=== PATIENT | female | born 1980 | race Caucasian/White ===

== ENCOUNTER 2016-11-27 07:38 | Emergency (ER) | payer BC ==
--- NOTE | 2016-11-27 09:15 | UC ---
Yuan Bertrand Angela, scribed for Tania Vargas MD on 11/27/16 at 0901 . General HPI - HPI Summary HPI Summary: This pt is a 36 y/o female presenting to [facility] c/o sinus pain and face congestion. Pt additionally c/o frontal headache. She reports she had a tooth extraction on 11/03/16. Pt was told by her dentist that she she should stop swishing fluids and blowing her nose, but pt is unsure until when she should do this. She states that she stopped using her inhaler since 11/03/16 because usually after using her inhaler she swishes with mouth wash to avoid infection. Pt also stopped taking her Flonase since 11/03/16. She denies fever, chills, body ache, sore throat, ear pain, SOB, nausea, vomiting, diarrhea. She has an upcoming appointment with her dentist on Dec.01. Pt uses prescribed ibuprofen 3 times a day for neck pain, last dose was 2 days ago. Usually for headaches pt uses 800 mg of ibuprofen. Pt takes Singulair but does not take any anti- histamines. PMHx: asthma, allergies. - History of Current Complaint Chief Complaint: UCGeneralIllness Stated Complaint: SINUS ISSUE Hx Obtained From: Patient Hx Last Menstrual Period: unknown Onset/Duration: Lasting Days Timing: Constant Associated Signs & Symptoms: Positive: Headache, Other - sinus pain and sinus congestion. Negative: Diarrhea, Fever, Nausea, SOB, Vomiting - Allergy/Home Medications Allergies/Adverse Reactions: Allergies Allergy/AdvReac Type Severity Reaction Status Date / Time Penicillins Allergy Intermediate Rash Verified 11/27/16 08:04 Home Medications: Home Medications Fluticasone NASAL * [Flonase *] 1 spray NASAL DAILY 11/27/16 [History Confirmed 11/27/16] Fluticasone/Vilanterol MDI(NF) [Breo Ellipta MDI (NF)] 1 puff INH DAILY [History Confirmed 11/27/16] PMH/Surg Hx/FS Hx/Imm Hx - Additional Past Medical History Additional PMH: PMHx: allergies Other Endocrine History: DENIES: diabetes Other Cardiovascular History: DENIES: HTN Respiratory History: Asthma - Surgical History Surgical History: None - Family History Known Family History: Positive: Hypertension, Diabetes, Other - Negative asthma - Social History 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 Alcohol Use: Rare Substance Use Type: None Smoking Status (MU): Never Smoked Tobacco Review of Systems Constitutional: Negative Skin: Negative Eyes: Blurred Vision ENT: Sinus Congestion, Sinus Pain/Tenderness, Other - NEG: sore throat, ear pain Respiratory: Negative Cardiovascular: Negative Gastrointestinal: Negative Genitourinary: Negative Motor: Negative Neurovascular: Negative Musculoskeletal: Negative Neurological: Headache Is Patient Immunocompromised?: No All Other Systems Reviewed And Are Negative: Yes Physical Exam Triage Information Reviewed: Yes Appearance: Well-Appearing, Pain Distress - mild Vital Signs: Initial Vital Signs Temp 98.3 F 11/27/16 08:13 Pulse 77 11/27/16 08:13 Resp 16 11/27/16 08:13 BP 137/97 11/27/16 08:13 Pulse Ox 97 11/27/16 08:13 Vital Signs Reviewed: Yes Eyes: Positive: Conjunctiva Clear ENT: Positive: Pharynx normal, Nasal drainage Dental: Positive: Other: - well healed socket upper left gum line. No adenopathy Neck: Positive: Supple, Nontender, No Lymphadenopathy Respiratory: Positive: Lungs clear, Normal breath sounds Cardiovascular: Positive: RRR, No Murmur Neurological Exam: Normal Neurological: Positive: Alert, Muscle Tone Normal Psychological Exam: Normal Skin Exam: Normal Course/Dx - Course Course Of Treatment: Pt is a 36 y/o female c/o sinus pain, sinus congestion, and headache s/p stopping her medications (inhaler and flonase) on 11/03/16 after her tooth extraction. Pt medications reviewed this visit. Symptoms most consistent with undertreated allergies. No fever or purulent discharge suggestive of acute bacterial sinusitis. - Differential Dx - Multi-Symptom Provider Diagnoses: environmental allergies, sinus headache. Discharge - Discharge Plan Condition: Stable Disposition: HOME Patient Education Materials: Allergies (ED) Forms: *Work Release Referrals: Arnold Agudelo PA [Primary Care Provider] - Additional Instructions: I think that your symptoms are primarily due to undertreated allergies. I suggest using ibuprofen 800mg for headache. Use a nasal saline rinse and gently blow discharge. Following that, use flonase spray this morning, and repeat the dose this evening. Take an antihistamine such as zyrtec 10 mg or Bettie 180mg today and once daily for at least 5 days to decrease histamine. You can swish and spit after steroid inhaler use. Ensure that you have a follow up blood pressure reading within a week or 2. The documentation as recorded by the Yuan fitzpatrick Angela accurately reflects the service I personally performed and the decisions made by me, Tania Vargas MD.
[2016-11-27 09:24] VITALS: BP 138/93
== END 2016-11-27 09:21 | disposition home or self-care (01) ==
LOC: UCEAST 07:38
DX: J45.909 Unspecified asthma, uncomplicated (principal); G44.89 Other headache syndrome; Z88.0 Allergy status to penicillin
CPT/HCPCS: 99212; G0463

== ENCOUNTER 2016-12-11 08:07 | Emergency (ER) | payer BC ==
[2016-12-11 08:20] VITALS: BP 128/81
--- NOTE | 2016-12-11 09:05 | UC ---
Alicia Bertrand Rebecca, scribed for Tania Vargas MD on 12/11/16 at 0856 . Respiratory Complaint HPI - HPI Summary HPI Summary: Pt is a 36 y/o F who presents to ED c/o worsening nasal congestion and drainage. Pt was seen 2 weeks ago for similar sx which have been constant and worsening since onset. On triage, pain was noted to be 0/10. Sx aggravated by nothing, alleviated by Neti Pot. Additionally c/o sore throat, slight nonproductive cough and ear pain with swallowing. Denies SOB, N/V, fever, sinus tenderness, eye pain and ISIDRO. Pt was seen on 11/27 for similar sx and was treated for allergies. PMHx sinus infections with similar sx. States that her daughter has bronchitis. PMHx asthma - uses Brio every day. - History of Current Complaint Chief Complaint: UCRespiratory Stated Complaint: SORE THROAT Time Seen by Provider: 12/11/16 08:50 Hx Obtained From: Patient Hx Last Menstrual Period: nuva ring Onset/Duration: Lasting Weeks - 2 weeks, Still Present Severity Currently: None Pain Intensity: 0 Pain Scale Used: 0-10 Numeric Character: Cough: Nonproductive Aggravating Factors: Nothing Alleviating Factors: Other - Neti Pot Associated Signs And Symptoms: Positive: Nasal Congestion. Negative: Fever - Allergies/Home Medications Allergies/Adverse Reactions: Allergies Allergy/AdvReac Type Severity Reaction Status Date / Time Penicillins Allergy Intermediate Rash Verified 11/27/16 08:04 PMH/Surg Hx/FS Hx/Imm Hx - Additional Past Medical History Additional PMH: NEGATIVE PMHx: COPD, DM Endocrine History: Hypothyroidism Respiratory History: Asthma - Surgical History Surgical History: None - Family History Known Family History: Positive: Hypertension, Diabetes, Other - Negative asthma - Social History Lives: With Family Alcohol Use: Rare Substance Use Type: None Smoking Status (MU): Never Smoked Tobacco Review of Systems Constitutional: Negative Skin: Negative Eyes: Negative ENT: Sore Throat, Ear Ache - with swallowing, Nasal Discharge, Sinus Congestion Respiratory: Cough - nonproductive Cardiovascular: Negative Gastrointestinal: Negative Genitourinary: Negative Motor: Negative Neurovascular: Negative Musculoskeletal: Negative Neurological: Negative Psychological: Negative All Other Systems Reviewed And Are Negative: Yes - Comments Additional Review of Systems Comments: NEGATIVE: SOB, N/V, fever, sinus tenderness, eye pain and ISIDRO. Physical Exam Triage Information Reviewed: Yes Appearance: Ill-Appearing - looks fatigued and mildly unwell. Vital Signs: Initial Vital Signs Temp 97.9 F 12/11/16 08:16 Pulse 87 12/11/16 08:16 Resp 18 12/11/16 08:16 BP 128/81 12/11/16 08:16 Pulse Ox 99 12/11/16 08:16 Eye Exam: Normal Eyes: Positive: Conjunctiva Clear ENT: Positive: Pharyngeal erythema, TMs normal Neck: Positive: Supple, Nontender, No Lymphadenopathy Respiratory: Positive: Lungs clear, Normal breath sounds Neurological Exam: Normal Psychological Exam: Normal Skin Exam: Normal UC Diagnostic Evaluation - Laboratory O2 Sat by Pulse Oximetry: 99 Respiratory Course/Dx - Course Course Of Treatment: Pt medications reviewed this visit. - Differential Dx/Diagnosis Differential Diagnosis/HQI/PQRI: Bronchitis, Laryngitis, Sinusitis Provider Diagnoses: sinusitis, URI Discharge - Discharge Plan Condition: Stable Disposition: HOME Prescriptions: Azithromyxin ILIA (NF) [Z-Ilia (Zithromax) 250 mg tabs #6] 2 tab PO .TODAY, THEN 1 DAILY #6 tab Patient Education Materials: Sinusitis (ED) Forms: *Work Release Referrals: Arnold Agudelo PA [Primary Care Provider] - Additional Instructions: Continue use of present medication, and add zithromax for treatment of sinusitis. Continue use of flonase for drainage. The documentation as recorded by the Alicia fitzpatrick Rebecca accurately reflects the service I personally performed and the decisions made by me, Tania Vargas MD.
== END 2016-12-11 09:15 | disposition home or self-care (01) ==
LOC: UCEAST 08:07
DX: J32.9 Chronic sinusitis, unspecified (principal); J06.9 Acute upper respiratory infection, unspecified; Z88.0 Allergy status to penicillin; J45.909 Unspecified asthma, uncomplicated; E03.9 Hypothyroidism, unspecified
CPT/HCPCS: 99212; G0463

== ENCOUNTER 2017-01-05 12:14 | Emergency (ER) | payer BC ==
[2017-01-05 13:44] VITALS: BP 153/97
--- NOTE | 2017-01-05 13:56 | UC ---
Throat Pain/Nasal Shiraz HPI - HPI Summary HPI Summary: Pt presents with sinus pain/pressure/congestion, a mild ST, and non-productive cough for the past 6 days. She was seen about a month ago and rx'd z-russ for similar symptoms. After completing that course of anbx, she felt better for a few days. Has been taking OTC "cold and flu" medication with minimal relief. Denies fever, chills, N/V/d/C, or pain. - History of Current Complaint Chief Complaint: UCGeneralIllness Stated Complaint: SORE THROAT, COUGH, AND STUFFY Time Seen by Provider: 01/05/17 13:53 Hx Obtained From: Patient Hx Last Menstrual Period: Nuvaring, 12/15/16 Onset/Duration: Gradual Onset Severity: Moderate Pain Intensity: 8 Pain Scale Used: 0-10 Numeric Cough: Nonproductive - Allergies/Home Medications Allergies/Adverse Reactions: Allergies Allergy/AdvReac Type Severity Reaction Status Date / Time Penicillins Allergy Intermediate Rash Verified 11/27/16 08:04 PMH/Surg Hx/FS Hx/Imm Hx Previously Healthy: Yes - Surgical History Surgical History: None - Family History Known Family History: Positive: Hypertension, Diabetes, Other - Negative asthma - Social History Occupation: Employed Full-time Lives: With Family Alcohol Use: Rare Substance Use Type: None Smoking Status (MU): Never Smoked Tobacco Review of Systems Constitutional: Negative Skin: Negative ENT: Sore Throat, Sinus Congestion, Sinus Pain/Tenderness Respiratory: Cough Cardiovascular: Negative Gastrointestinal: Negative Genitourinary: Negative Neurological: Negative Psychological: Negative All Other Systems Reviewed And Are Negative: Yes Physical Exam Triage Information Reviewed: Yes Appearance: Well-Appearing, Well-Nourished Vital Signs: Initial Vital Signs Temp 98.7 F 01/05/17 13:38 Pulse 102 01/05/17 13:38 Resp 18 01/05/17 13:38 BP 153/97 01/05/17 13:38 Pulse Ox 100 01/05/17 13:38 Eyes: Positive: Conjunctiva Clear ENT: Positive: Hearing grossly normal, Pharynx normal, Nasal congestion, Nasal drainage, TMs normal, Sinus tenderness, Uvula midline. Negative: Pharyngeal erythema, TM bulging, TM dull, TM red, Tonsillar swelling, Tonsillar exudate Neck: Positive: Supple, Nontender, No Lymphadenopathy Respiratory: Positive: Chest non-tender, Lungs clear, Normal breath sounds, No respiratory distress, No accessory muscle use Cardiovascular: Positive: RRR, No Murmur, Pulses Normal Neurological: Positive: Alert Psychological: Positive: Age Appropriate Behavior Skin: Negative: rashes Throat Pain/Nasal Course/Dx - Course Course Of Treatment: Sinusitis - recently on z-russ and allergy to penicillin. Will try Doxycycline Assessment/Plan: Sinusitis - recently on z-russ and allergy to penicillin. Will try Doxycycline - Differential Dx/Diagnosis Differential Diagnosis/HQI/PQRI: Influenza, Pharyngitis, Tonsillitis, URI Provider Diagnoses: Sinusitis Discharge - Discharge Plan Condition: Stable Disposition: HOME Prescriptions: DOXYcycline CAP(*) [DOXYcycline 100MG CAP(*)] 100 mg PO BID #20 cap Patient Education Materials: Acute Bronchitis (ED) Referrals: Arnold Agudelo PA [Primary Care Provider] - Additional Instructions: 1) Doxycycline 100mg twice a day for 10 days 2) Plain mucinex over the counter twice a day 3) Rest and drink plenty of fluids! If you develop fever, SOB, chest pain, new or worsening symptoms - please call our office or go to ED. Your blood pressure was high at today's visit - please see your PCP within 4 weeks for recheck and re-evaluation.
== END 2017-01-05 14:44 | disposition home or self-care (01) ==
LOC: UCEAST 12:14
DX: J32.9 Chronic sinusitis, unspecified (principal); Z88.0 Allergy status to penicillin
CPT/HCPCS: 87651; 99211; G0463

== ENCOUNTER 2017-05-14 20:15 | Emergency (ER) | payer BC ==
[2017-05-14 20:24] VITALS: BP 139/89
[2017-05-14] MEDS ORDERED: Fluorescein Sod TOPICAL 0.6* 0.6 MG TEST OPHTHALMIC ONE (20:46)
[2017-05-14] MEDS ORDERED: Polymyx/Trimethoprim OPTH* 10 ML BTL LEFT EYE ONE (21:05)
--- NOTE | 2017-05-14 21:05 | UC ---
Eye Complaint HPI - HPI Summary HPI Summary: Patient presents to the with chief complaint of left eye irritation since last evening. She denies any known foreign body or trauma. Does not feel there is something in the eye, but states she feels that something is irritating it. She continues to place drops in the eye throughout the day with relief of symptoms temporarily. Does not endorse pain. Slight blurry vision to the left eye which is intermittent. Denies contact use. Denies any drainage from the eye or injection. - History of Current Complaint Chief Complaint: UCEye Stated Complaint: EYE COMPLAINT Time Seen by Provider: 05/14/17 20:31 Hx Obtained From: Patient Hx Last Menstrual Period: Nuvaring, 12/15/16 ?: No Onset/Duration: Sudden Onset Timing: Constant Severity Initially: Moderate Severity Currently: Moderate Pain Intensity: 0 Pain Scale Used: 0-10 Numeric Location of Injury: Conjunctiva Character: Dull Aggravating Factor(s): Eye Drops Alleviating Factor(s): Nothing Associated Signs And Symptoms: Positive: Vision Impairment Left. Negative: Photophobia, Drainage (Clear), Drainage (Purulent), Vision Impairment Bilateral , Vision Impairment Right, Fever, Swelling - Risk Factors Penetrating Injury Risk Factor: Negative Globe Rupture Risk Factors: Negative Acute Glaucoma Risk Factors: Eye Inflammation Optic Artery Occlusion Risk Factors: Negative - Allergies/Home Medications Allergies/Adverse Reactions: Allergies Allergy/AdvReac Type Severity Reaction Status Date / Time Penicillins Allergy Rash Verified 05/14/17 20:24 PMH/Surg Hx/FS Hx/Imm Hx Previously Healthy: Yes - Surgical History Surgical History: None - Family History Known Family History: Positive: Hypertension, Diabetes, Other - Negative asthma - Social History Occupation: Employed Full-time Lives: With Family Alcohol Use: Occasionally Substance Use Type: None Smoking Status (MU): Never Smoked Tobacco Review of Systems Constitutional: Negative Skin: Negative Eyes: Blurred Vision, Eye Redness Respiratory: Negative Cardiovascular: Negative Motor: Negative Neurovascular: Negative Musculoskeletal: Negative Neurological: Negative Is Patient Immunocompromised?: No All Other Systems Reviewed And Are Negative: Yes Physical Exam Triage Information Reviewed: Yes Appearance: Well-Appearing, Well-Nourished Vital Signs: Initial Vital Signs Temp 97.4 F 05/14/17 20:19 Pulse 98 05/14/17 20:19 Resp 16 05/14/17 20:19 BP 139/89 05/14/17 20:19 Pulse Ox 98 05/14/17 20:19 Vital Signs Reviewed: Yes Eyes: Positive: Conjunctiva Inflamed Neck exam: Normal Neck: Positive: Supple, No Lymphadenopathy Respiratory Exam: Normal Respiratory: Positive: Chest non-tender, Lungs clear Cardiovascular Exam: Normal Cardiovascular: Positive: RRR Musculoskeletal Exam: Normal Musculoskeletal: Positive: Strength Intact Neurological Exam: Normal Neurological: Positive: Alert Psychological: Positive: Normal Response To Family Skin Exam: Normal Eye Complaint Course/Dx - Course Course Of Treatment: Visual acuity test performed. Right eye shows 20/20 and left eye shows 20/15. She has not seen an eye doctor in 2 years and does not wear contacts. She is unsure if she obtain something in the eye or the eyes just irritated. She feels as though the eye is irritated, but denies any pain. Slight intermittent blurry vision to the left eye. Denies any headaches or dizziness. Fluoroscein uptake does not show evidence of foreign body or corneal abrasion. There is no evidence of keratitis, corneal ulcer or other injury to the eye. There may be an abrasion or foreign body small enough which I am unable to see with Wood's lamp. Therefore, I have given her preventative antibiotic drops to use every 3 hours while awake 5 days. 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 She is okay with this plan and discharge. - Differential Dx/Diagnosis Provider Diagnoses: Left Eye Irritation Discharge - Sign-Out/Discharge Documenting (check all that apply): Discharge - Discharge Plan Condition: Stable Disposition: HOME Patient Education Materials: Eye Foreign Body (ED) Referrals: Arnold Agudelo PA [Primary Care Provider] - Herrera Rolle MD [Medical Doctor] - Additional Instructions: I am unable to discern if you have a foreign body or an abrasion as I do not see anything during the physical exam. however, due to the concern for worsening symptoms, we will cover with an antibiotic drop. Please follow up with an eye doctor for any worsening symptoms - Billing Disposition and Condition Condition: STABLE Disposition: HOME
[2017-05-14] MEDS ORDERED: Polymyx/Trimethoprim OPTH* 10 ML BTL LEFT EYE SCH (21:30)
== END 2017-05-14 21:20 | disposition home or self-care (01) ==
LOC: UCEAST 20:15
DX: H57.8 Other specified disorders of eye and adnexa (principal); H53.8 Other visual disturbances; Z88.0 Allergy status to penicillin
CPT/HCPCS: 99212; G0463